=== PATIENT | male | born 1955 | race Caucasian/White ===

== ENCOUNTER 2020-02-22 09:50 | Emergency (ER) | payer MEDICARE, SELFPAY ==
[2020-02-22 09:57] VITALS: BP 185/89; PULSE 57; RESP 18; TEMP 36.7; O2SAT 100
--- NOTE | 2020-02-22 10:24 | ECG_ITS ---
Measurements Intervals [place] Rate: 55 P: 18 DC: 159 QRS: -21 QRSD: 109 T: -3 QT: 444 QTc: 428 Interpretive Statements SINUS BRADYCARDIA EARLY PRECORDIAL R/S TRANSITION VOLTAGE CRITERIA FOR LVH MINIMAL Q WAVES- HIGH LATERAL LEADS BORDERLINE ST-T WAVE ABNORMALITY- INFERIOR LEADS BASELINE ARTIFACT- V4-V5 BORDERLINE ECG Electronically Signed On 02-23-2020 7:52:53 CDT by Juan Luis Ji D.O.
--- NOTE | 2020-02-22 10:34 | ED.RECABL ---
HPI - Recheck/Abnormal Lab/Rx General Chief Complaint: Recheck/Abnormal Lab/Rx Stated Complaint: blood pressure elevated Time Seen by Provider: 02/22/20 10:23 History of Present Illness HPI narrative: Patient is a 64-year-old male who presents ER with concerns for hypertension. 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 He reports he checked his blood pressure yesterday as well as this morning both times his blood pressure was elevated. It has been in the 150s systolic in the 100s diastolic. No chest pain or chest pressure. He has been on no sinus decongestant medication or steroids. He reports he has never been told he has hypertension before. Reports earlier in week he had a mild headache and he is also had a couple episodes of brief dizziness lasting 10 seconds when he gets up in the morning. He does have history of vertigo and this feels slightly different. No focal weakness in arm or leg. He has not been started on any medications. Related Data Home Medications Medication Instructions Recorded Confirmed montelukast mg 02/22/20 omeprazole 20 mg PO BID 02/22/20 oxymetazoline [Nasal [place] INTRANASAL 02/22/20 02/22/20 (oxymetazoline)] Allergies Allergy/AdvReac Type Severity Reaction Status Date / Time clarithromycin [From Biaxin] Allergy Nervousness Verified 02/22/20 10:02 loratadine [From Claritin-D] Allergy Palpitation Verified 02/22/20 10:02 s prednisone Allergy Jittery Verified 02/22/20 10:02 pseudoephedrine Allergy Palpitation Verified 02/22/20 10:02 [From Claritin-D] s Review of Systems Review of Systems: All systems reviewed & are unremarkable except as noted in HPI and below Constitutional: Constitutional: Denies chills, Denies fever(s) and Denies weakness ENT: Reports dizziness, Denies nasal congestion and Denies sore throat Cardiovascular: Cardiovascular: Denies chest pain and Denies radiating jaw, neck or arm pain Respiratory: Respiratory: Denies cough and Denies dyspnea PMFSH Past Medical History Medical History (Updated 02/22/20 @ 12:28 by Saad Valdez MD) Pneumonia Surgical History Surgical History (Updated 02/22/20 @ 10:37 by Saad Valdez MD) H/O excision of ganglion cyst Social History Social History (Updated 02/22/20 @ 10:37 by Saad Valdez MD) Smoking status: Never smoker Gender identity (if verbalized by the patient): Male Exam Narrative: Exam Narrative: GENERAL: Well-appearing, well-nourished, and in no acute distress. HEAD: Normocephalic, atraumatic. ENT: Mucous membranes moist. TMs normal bilaterally. CHEST: Clear to auscultation. No respiratory distress. HEART: Regular rate and rhythm. Normal peripheral pulses. EXTREMITIES: Normal range of motion. No edema. SKIN: Warm, dry, no rash. NEURO: Alert and oriented x3. PSYCH: Normal mood and affect. Course Course Emergency Course: Persistently elevated blood pressures. Will start on HCTZ. Follow-up with PCP. Vital Signs Vital signs: Vital Signs Temperature 98.1 F 02/22/20 09:57 Pulse Rate 57 L 02/22/20 09:57 Respiratory Rate 18 02/22/20 09:57 Blood Pressure 185/89 H 02/22/20 09:57 Pulse Oximetry 100 02/22/20 09:57 Temperature 98.1 F 02/22/20 09:57 Pulse Rate 57 L 02/22/20 09:57 Respiratory Rate 18 02/22/20 09:57 Blood Pressure 185/89 H 02/22/20 09:57 Pulse Oximetry 100 02/22/20 09:57 MDM - Recheck/Abnormal Lab/Rx Lab Data Result diagrams: 02/22/20 10:47 02/22/20 10:47 Labs: Lab Results 02/22/20 02/22/20 02/22/20 Range/Units 10:47 10:47 11:23 WBC 5.1 (4.5-10.0) K/mm3 RBC 4.61 (4.6-6.20) M/mm3 Hgb 14.3 (14.0-18.0) g/dL Hct 42.4 (42.0-52.0) % MCV 92.0 (80-100) fl MCH 31.0 (26-34) pg MCHC 33.7 (32-36) g/dl RDW 13.2 (11.5-14.5) % Plt Count 207 (150-375) k/mm3 MPV 1
[2020-02-22 10:53] LABS: Basophils Absolute Auto 0.1 K/mm3 (0.0-0.1); Eosinophils Absolute Auto 0.2 K/mm3 (0-0.3); Eosinophils Percent Auto 4.7 % (0-4.4); Hematocrit 42.4 % (42.0-52.0); Hemoglobin 14.3 g/dL (14.0-18.0); Immature Granulocyte Absolute 0.03 K/mm3 (0.00-0.031); Immature Granulocyte Percent A 0.6 % (0-0.5); Lymphocytes Absolute Auto 1.61 K/mm3 (0.9-3.2); Lymphocytes Percent Auto 31.5 % (18.3-44.2); Mean Corpuscular HGB Conc 33.7 g/dl (32-36); Mean Platelet Volume 10.9 fl (7.4-10.4); Monocytes Absolute Auto 0.5 K/mm3 (0.1-0.6); Monocytes Percent Auto 9.6 % (2.6-8.5); Neutrophils Absolute Auto 2.7 K/mm3 (1.3-6.7); Neutrophils Percent Auto 52.6 % (45.5-73.1); Platelet Count Result 207 k/mm3 (150-375); Red Blood Count 4.61 M/mm3 (4.6-6.20); Red Cell Distribution Width 13.2 % (11.5-14.5); White Blood Count 5.1 K/mm3 (4.5-10.0)
[2020-02-22 11:05] LABS: Anion Gap 8 mmol/L (8-16); Blood Urea Nitrogen 13 mg/dL (9-20); Carbon Dioxide 24 mmol/L (22-30); Chloride 106 mmol/L (98-107); Estimated CRCL calculation 78 ml/min; Estimated Glomerular Filt Rate > 60; Glucose 107 mg/dL (75-110); Potassium 3.9 mmol/L (3.4-5.0); Sodium 138 mmol/L (137-145)
[2020-02-22 11:32] LABS: Add Urine Microscopic? NO; Appearance Urine Clear (Clear); Bilirubin Urine Negative (Negative); Blood Urine Negative (Negative); Color Urine Colorless (Yellow); Glucose Urine UA Negative (Negative); Ketones Urine Negative (Negative); Leukocyte Esterase Ur Negative LEU/UL (Negative); Nitrate Urine Negative (Negative); Protein Urine Negative (Negative); Specific Grav Ur 1.005 (1.001-1.035); Urobilinogen Urine Negative mg/dL (<2.0)
[2020-02-22 12:35] VITALS: BP 162/100; PULSE 68; RESP 17; O2SAT 97
== END 2020-02-22 12:53 | disposition home or self-care (01) ==
PROVIDERS: Emergency Provider Emergency Medicine; PCP Internal Medicine
DX: I10 Essential (primary) hypertension (principal); R00.1 Bradycardia, unspecified; R94.31 Abnormal electrocardiogram [ECG] [EKG]
CPT/HCPCS: 36415; 80048; 81003; 85025; 93005; 99283